=== PATIENT | female | born 1950 | race Caucasian/White ===

== ENCOUNTER → 2016-10-19 08:36 | Outpatient (CLI) | payer MEDICARE, MEDICAID ==
[2015-06-22 11:37] VITALS: BMI 23.5
[~2016-10-19 08:36] MED LIST: ACCUPRIL20 MG PO; ATIVAN1 MG OR; ATIVAN1 MG PO; BUSPAR10 MG; CALCIUM 600+D T1 TA1 PO; CYMBALTA30 MG; CYMBALTA30 MG PO; ELAVIL25 MG PO; HYDROCODONE-APA1 TAB PO; MORPHINE SULFAT30 M4 PO; MULTI-DAY VITAM1 TAB PO; REQUIP1 MG PO; STOOL SOFTENER240 MG; VOLTAREN75 MG PO; ZANAFLEX4 MG PO; ZOLOFT50 MG PO
== END | disposition home or self-care (01) ==
LOC: D.CT 10-11 11:30
DX: J32.9 Chronic sinusitis, unspecified (principal)

== ENCOUNTER → 2018-01-23 18:24 | Outpatient (CLI) | payer MEDICARE, MEDICAID ==
[2015-06-22 11:37] VITALS: BMI 23.5
== END | disposition home or self-care (01) ==
LOC: D.MRI 01-21 18:00
DX: M54.40 Lumbago with sciatica, unspecified side (principal)

== ENCOUNTER → 2018-09-15 17:58 | Outpatient (CLI) | payer MEDICARE, MEDICAID ==
[2015-06-22 11:37] VITALS: BMI 23.5
== END | disposition home or self-care (01) ==
LOC: D.RAD 17:58
DX: R07.89 Other chest pain (principal)